=== PATIENT | female | born 1955 | race African-American/Black ===

== ENCOUNTER → 2023-12-16 | Day surgery (SDC) | payer MEDICARE ==
[2023-12-10 12:27] LABS: BASOPHILS % 0.4 % (0.0-1.0); EOSINOPHILS % 0.6 % (0.0-6.0); HEMATOCRIT 40.7 % (34.2-44.1); HEMOGLOBIN 12.4 g/dL (12.0-16.0); LYMPHOCYTES # (AUTO) 1.7 (1.0-3.2); LYMPHOCYTES % 35.1 % (18.0-39.1); MEAN CORPUSCULAR HEMOGLOBIN 26.8 pg (28-32); MEAN CORPUSCULAR HGB CONC 30.5 g/dL (31-35); MEAN CORPUSCULAR VOLUME 88.1 fL (81-99); MONOCYTES # (AUTO) 0.5 (0.2-0.8); MONOCYTES % 10.6 % (4.4-11.3); NEUTROPHILS # (AUTO) 2.6 (2.1-6.9); NEUTROPHILS % 52.9 % (38.7-80.0); PLATELET COUNT 414 x10e3/uL (140-360); RED BLOOD COUNT 4.62 x10e6/uL (3.6-5.1); RED CELL DISTRIBUTION WIDTH 14.4 % (11.7-14.4); WHITE BLOOD COUNT 4.82 x10e3/uL (4.8-10.8)
[~2023-12-16] MED LIST: AMLODIPINE BESY10 MG PO; ASPIRIN EC81 MG PO; CLOTRIMAZOLE-BE15 GM TOP; COREG12.5 MG PO; DEXMEDETOMIDINE HCL 200 MCG/2 ML VIAL ONE; DICYCLOMINE HCL20 MG PO; DOCUSATE SODIU100 MG PO; FUROSEMIDE40 MG PO; HYDROCORTISONE30 GM TOP; LACTATED RINGER'S 1,000 ML BAG ONE; LACTATED RINGER'S 1,000 ML ONE; LEVOTHYROXINE75 MCG PO; LIDOCAINE HCL 2% LOCAL INJ 5 ML SDV VIAL INJ ONE; MULTI-VITAMIN1 EACH PO; MYCOPHENOLATE250 MG PO; NITROGLYCERIN0.4 MG SL; PANTOPRAZOLE SO40 MG PO; PRAVASTATIN SOD20 MG PO; PREDNISONE5 MG PO; PRIMIDONE125 MG PO; PROPOFOL IV EMULSION 10 MG/ML 50 ML VIAL IV ONE; SODIUM CHLORIDE 0.9% INJ 100 ML BAG ONE; TACROLIMUS1 MG PO; ULTRAM 50MG50 MG PO; VASCEPA1 GM PO; VITAMIN B-121000 MCG PO; VITAMIN D3 COM1 EACH PO
[2023-12-16] MEDS: LACTATED RINGER'S 1,000 ML BAG INJ ONE (06:45)
[2023-12-16 07:23] VITALS: TEMP 97.2
[2023-12-16 07:35] VITALS: BP 132/70; PULSE 70; RESP 16; O2SAT 100
== END | disposition home or self-care (01) ==
LOC: OR 05:19
PROVIDERS: ATTEND Internal Medicine Gastroenterology
DX: K29.50 Unspecified chronic gastritis without bleeding (principal); D12.4 Benign neoplasm of descending colon; K31.7 Polyp of stomach and duodenum; K21.9 Gastro-esophageal reflux disease without esophagitis; K58.9 Irritable bowel syndrome, unspecified; K64.8 Other hemorrhoids; I10 Essential (primary) hypertension; E78.5 Hyperlipidemia, unspecified; E11.9 Type 2 diabetes mellitus without complications; Z78.9 Other specified health status; E03.9 Hypothyroidism, unspecified; M06.9 Rheumatoid arthritis, unspecified; Z88.3 Allergy status to other anti-infective agents; Z91.041 Radiographic dye allergy status; Z01.812 Encounter for preprocedural laboratory examination; Z79.899 Other long term (current) drug therapy; Z79.82 Long term (current) use of aspirin; Z68.41 Body mass index [BMI] 40.0-44.9, adult; Z94.0 Kidney transplant status
CPT/HCPCS: 36415 ×2; 43239; 45385; 82948; 85025; 88305; 88313; 88342; J2001; J2704; J7050; J7121